=== PATIENT | male | born 1990 | race Caucasian/White ===

== ENCOUNTER 2019-09-26 11:05 | Emergency (ER) | payer BC, OTHER ==
[2019-09-26 11:25] VITALS: BP 130/87
--- NOTE | 2019-09-26 11:56 | ED Physician Documentation ---
PD HPI HEENT - Stated complaint Stated Complaint: MOUTH PX/SWELLING - Chief complaint Chief Complaint: Heent - History obtained from History obtained from: Patient - History of Present Illness Timing - onset: Yesterday Timing - details: Abrupt onset Pain level now: 5 Location: Tooth Associated symptoms: No: Fever, Congestion, Rhinorrhea Recently seen: Not recently seen - Additional information Additional information: This is a 29-year-old presents with his significant other and his mother complaints that he has had a broken tooth for years on the left mandibular ridge and then yesterday it started swelling in that area and he has pain that he rates at a 5 out of 10. There is not been any drainage. No fever. He is not diabetic. He has not had dental insurance to see a dentist about this. Review of Systems Constitutional: denies: Fever Throat: reports: Dental pain / toothache Endocrine: reports: Other (No history of diabetes) PD PAST MEDICAL HISTORY - Past Medical History Past Medical History: Yes - Past Surgical History Past Surgical History: Yes - Present Medications Home Medications: Ambulatory Orders Medication Instructions Recorded Confirmed Amoxicillin 500 mg PO TID #30 capsule 09/26/19 Hydrocodone/Acetaminophen 1 - 2 each PO Q6H PRN #10 tablet 09/26/19 [Hydrocodon-Acetaminophen 5-325] - Allergies Allergies/Adverse Reactions: Allergies Allergy/AdvReac Type Severity Reaction Status Date / Time alcohol Allergy Mild Rash Verified 09/26/19 11:12 bee stings Allergy Hives Uncoded 09/26/19 11:12 - Social History Does the pt smoke?: No Smoking Status: Never smoker Does the pt drink ETOH?: No Does the pt have substance abuse?: Yes - Immunizations Immunizations are current?: Yes Immunizations: TDAP current <10years - POLST Patient has POLST: No PD ED PE NORMAL - Vitals Vital signs reviewed: Yes - General General: Alert and oriented X 3, No acute distress, Well developed/nourished, Other (Patient seems very nervous) - HEENT HEENT: Atraumatic, PERRL, Other (There is obvious swelling to the left jaw. There is a broken mandibular molar at the gumline and there is a lot of swelling of the gingiva in that area its exquisitely tender. There is no bulging abscess.) - Neck Neck: No adenopathy - Respiratory Respiratory: No respiratory distress Results - Vitals Vitals: Vital Signs - 24 hr 09/26/19 11:10 Temperature 36.4 C L Heart Rate 91 Respiratory 18 Rate Blood Pressure 130/87 H O2 Saturation 98 Oxygen O2 Source Room air Departure - Departure Disposition: 01 Home, Self Care Clinical Impression: Dental abscess Condition: Good Instructions: ED Abscess Dental Follow-Up: [place] [facility] [Provider Group] Prescriptions: Amoxicillin 500 mg PO TID #30 capsule Hydrocodone/Acetaminophen [Hydrocodon-Acetaminophen 5-325] 1 - 2 each PO Q6H PRN #10 tablet PRN Reason: pain Comments: Take the amoxicillin 3 times a day. Take ibuprofen 3 to 4 tablets every 8 hours with food for the pain and to help with the inflammation. Do salt water swishes 2-3 times a day. If this ruptures try to spit out the material that drains. You should follow-up with a dentist for definitive treatment of the tooth.
[2019-09-26] MEDS ORDERED: AMOXICILLIN 250 MG CAPSULE PO STA (11:58)
[2019-09-26] MEDS ORDERED: IBUPROFEN 600 MG TABLET PO STA (11:58)
== END 2019-09-26 12:09 | disposition home or self-care (01) ==
LOC: ED 11:05
DX: K04.7 Periapical abscess without sinus (principal); S02.5XXA Fracture of tooth (traumatic), initial encounter for closed fracture; X58.XXXA Exposure to other specified factors, initial encounter
CPT/HCPCS: 99282; 99284; A9270

== ENCOUNTER 2021-05-07 11:25 | Emergency (ER) | payer SELFPAY ==
--- NOTE | 2021-05-07 12:26 | ED Physician Documentation ---
History of Present Illness - Stated complaint Stated Complaint: FACE RASH - Chief complaint Chief Complaint: Wound - History obtained from History obtained from: Patient - History of Present Illness Timing: How many days ago (4) Pain level max: 0 Pain level now: 0 - Additonal information Additional information: Patient is a 31-year-old male who presents to the emergency department stating he had a scratch on his chin about 4 days ago, has gradually enlarged in size, become yellow and crusted. Concerned about infection. Nothing makes it better or worse. No fevers. No chills. Review of Systems Constitutional: denies: Fever, Chills GI: denies: Vomiting, Diarrhea Neurologic: denies: Headache PD PAST MEDICAL HISTORY - Past Medical History Cardiovascular: None Respiratory: None Neuro: None Endocrine/Autoimmune: None GI: None : None HEENT: None Psych: None Musculoskeletal: None Derm: None - Past Surgical History Past Surgical History: Yes - Present Medications Home Medications: Ambulatory Orders Medication Instructions Recorded Confirmed Mupirocin 2% Oint [Bactroban 2% 1 applic TOP BID #50 gm 05/07/21 Oint] Sulfamethox/Trimeth 800/160 1 each PO BID #14 tablet 05/07/21 [Bactrim Ds 800/160] cephALEXin [Keflex] 500 mg PO Q6H #28 cap 05/07/21 - Allergies Allergies/Adverse Reactions: Allergies Allergy/AdvReac Type Severity Reaction Status Date / Time alcohol Allergy Mild Rash Verified 05/07/21 11:31 bee stings Allergy Hives Uncoded 09/26/19 11:12 - Social History Does the pt smoke?: No Smoking Status: Never smoker Does the pt drink ETOH?: No Does the pt have substance abuse?: Yes - Immunizations Immunizations are current?: No Immunizations: Other immun not current - POLST Patient has POLST: No PD ED PE NORMAL - Vitals Vital signs reviewed: Yes - General General: Alert and oriented X 3, No acute distress - HEENT HEENT: Moist mucous membranes - Derm Derm: Warm and dry, Other (2cm circular lesion to L chin. yellow crusting. no drainage, no swelling. ) - Neuro Neuro: Alert and oriented X 3 Results - Vitals Vitals: Vital Signs - 24 hr 05/07/21 11:32 Temperature 36.7 C Heart Rate 63 Respiratory 16 Rate Blood Pressure 112/60 O2 Saturation 96 Oxygen O2 Source Room air PD MEDICAL DECISION MAKING - ED course Complexity details: considered differential, d/w patient ED course: 31-year-old male with what appears to be impetigo. We will place him on Bactrim, Keflex and mupirocin. Patient counseled regarding signs and symptoms for which I believe and urgent re-evaluation would be necessary. Patient with good understanding of and agreement to plan and is comfortable going home at this time This document was made in part using voice recognition software. While efforts are made to proofread this document, sound alike and grammatical errors may occur. Departure - Departure Disposition: Home, Self Care Clinical Impression: Impetigo Condition: Good Instructions: ED Staph Infec Abx Tx Only Follow-Up: your,doctor in 1 week for recheck [Other] Prescriptions: Sulfamethox/Trimeth 800/160 [Bactrim Ds 800/160] 1 each PO BID #14 tablet Mupirocin 2% Oint [Bactroban 2% Oint] 1 applic TOP BID #50 gm cephALEXin [Keflex] 500 mg PO Q6H #28 cap Comments: Your prescriptions were sent to [facility] in [place]. Take all antibiotics until gone. You can use the ointment as well. Return if you worsen.
[2021-05-07 12:38] VITALS: BP 119/92
== END 2021-05-07 12:50 | disposition home or self-care (01) ==
LOC: ED 11:25
DX: L01.00 Impetigo, unspecified (principal)
CPT/HCPCS: 99283